=== PATIENT | male | born 1945 | race Caucasian/White ===

== ENCOUNTER 2016-10-26 20:37 | Inpatient (IN) | payer BC, MEDICARE ==
[~2016-10-26] VITALS: Ht 190.5 cm; Wt 104.7 kg
[2016-10-26] MEDS ORDERED: ONDANSETRON 4 MG VIAL IV PRN (22:55)
[2016-10-26] MEDS ORDERED: SODIUM CHLORIDE 0.9% 1,000 ML IV SCH (22:55)
[2016-10-26] MEDS ORDERED: ALU/MAG/SIM 30 ML UDC PO PRN (22:55)
[2016-10-26] MEDS ORDERED: MAG HYDROX 30 ML UDC PO PRN (22:55)
[2016-10-26] MEDS ORDERED: SALINE FLUSH 10 ML FLUSH PRN (22:55)
[2016-10-26] MEDS ORDERED: BISACODYL EC 5 MG TAB PO PRN (22:55)
[2016-10-27] VITALS (8 sets, daily range): BP systolic 100–117; RESP 18–22; TEMP 97.4–98.1; Ht 190.5 cm; Wt 104.7 kg
[2016-10-27] MEDS ORDERED: DILAUDID 1 MG/ML AMP IV STA (00:25)
[2016-10-27] MEDS ORDERED: ONDANSETRON 4 MG VIAL ONE (00:47)
[2016-10-27] MEDS ORDERED: MORPHINE 4 MG/ML SYR ONE (00:47)
[2016-10-27] MEDS ORDERED: MISSING DOSE XX ONE (02:50)
[2016-10-27] MEDS: PANTOPRAZOLE 40 MG VIAL IV SCH ×3 (04:17→22:03)
[2016-10-27] MEDS: MORPHINE 4 MG/ML SYR IV PRN ×2 (04:44→22:03)
[2016-10-27] MEDS: SODIUM CHLORIDE 0.9% FLUSH BAG 500 ML IV SCH (06:54)
[2016-10-27] MEDS: LEVOTHYROXINE 0.025 MG TAB PO SCH (07:00)
[2016-10-27] MEDS ORDERED: GLUCAGON 1 MG VIAL IM PRN (08:00)
[2016-10-27] MEDS ORDERED: DEXTROSE 50% SYRINGE 50 ML IV PRN (08:00)
[2016-10-27] MEDS: CARVEDILOL 25 MG TAB PO SCH ×2 (09:00→21:00)
[2016-10-27] MEDS: SALINE FLUSH 10 ML FLUSH SCH ×2 (09:10→20:14)
[2016-10-27] MEDS: AMIODARONE 200 MG TAB PO SCH ×2 (09:10→22:00)
[2016-10-27] MEDS: BUMETANIDE 1 MG/4 ML VIAL IV SCH ×2 (09:11→17:22)
[2016-10-27] MEDS ORDERED: GABAPENTIN 300 MG CAP PO SCH (17:00)
[2016-10-27] MEDS: Atorvastatin 40 MG TAB PO SCH (20:14)
[2016-10-27] MEDS: GABAPENTIN 300 MG CAP PO SCH (20:14)
[2016-10-27] MEDS: BISACODYL 10 MG SUPP RECTAL PRN (20:15)
[2016-10-28] VITALS (9 sets, daily range): BP systolic 80–118; RESP 16–20; TEMP 97.5–98.3
[2016-10-28] MEDS: SODIUM CHLORIDE 0.9% FLUSH BAG 500 ML IV SCH (05:18)
[2016-10-28] MEDS: LEVOTHYROXINE 0.025 MG TAB PO SCH (06:55)
[2016-10-28] MEDS: AMIODARONE 200 MG TAB PO SCH ×2 (10:00→21:50)
[2016-10-28] MEDS: CARVEDILOL 25 MG TAB PO SCH ×2 (10:00→21:00)
[2016-10-28] MEDS: GABAPENTIN 600 MG TAB PO SCH ×2 (10:00→14:31)
[2016-10-28] MEDS: BUMETANIDE 1 MG/4 ML VIAL IV SCH ×2 (10:01→17:28)
[2016-10-28] MEDS: PANTOPRAZOLE 40 MG VIAL IV SCH ×2 (10:01→22:46)
[2016-10-28] MEDS: SALINE FLUSH 10 ML FLUSH SCH ×2 (10:02→19:44)
[2016-10-28] MEDS ORDERED: PEG/E-LYTE 4,000 ML BTL PO ONE (16:00)
[2016-10-28] MEDS ORDERED: SODIUM CHLORIDE 0.9% 1,000 ML IV ONE (21:40)
[2016-10-28] MEDS: Atorvastatin 40 MG TAB PO SCH (21:50)
[2016-10-28] MEDS: GABAPENTIN 300 MG CAP PO SCH (21:50)
[2016-10-29] VITALS (8 sets, daily range): BP systolic 97–124; RESP 18–20; TEMP 97.3–99.9
[2016-10-29] MEDS ORDERED: MISSING DOSE XX ONE ×2 (00:05→12:55)
[2016-10-29] MEDS: BISACODYL 10 MG SUPP RECTAL PRN (00:19)
[2016-10-29] MEDS ORDERED: PEG/E-LYTE 4,000 ML BTL PO ONE (04:00)
[2016-10-29] MEDS: SODIUM CHLORIDE 0.9% FLUSH BAG 500 ML IV SCH (05:06)
[2016-10-29] MEDS ORDERED: BISACODYL EC 5 MG TAB PO ONE (08:00)
[2016-10-29] MEDS: AMIODARONE 200 MG TAB PO SCH ×2 (08:23→21:01)
[2016-10-29] MEDS: GABAPENTIN 600 MG TAB PO SCH ×2 (08:23→14:31)
[2016-10-29] MEDS: LEVOTHYROXINE 0.025 MG TAB PO SCH (08:23)
[2016-10-29] MEDS: SALINE FLUSH 10 ML FLUSH SCH ×2 (08:24→21:02)
[2016-10-29] MEDS: POLYETHYLENE GLYCOL 17 GM PACKET PO SCH ×12 (10:31→22:54)
[2016-10-29] MEDS: PANTOPRAZOLE 40 MG VIAL IV SCH (11:18)
[2016-10-29] MEDS ORDERED: POLYETHYLENE GLYCOL 17 GM PACKET PO SCH (17:30)
[2016-10-29] MEDS: SIMETHICONE 80 MG CHEW TAB PO SCH (21:01)
[2016-10-29] MEDS: GABAPENTIN 300 MG CAP PO SCH (21:01)
[2016-10-29] MEDS: Carvedilol 6.25 MG TAB PO SCH (21:01)
[2016-10-29] MEDS: Atorvastatin 40 MG TAB PO SCH (21:01)
[2016-10-30] VITALS (15 sets, daily range): BP systolic 99–134; RESP 14–20; TEMP 97.2–98.4
[2016-10-30] MEDS: POLYETHYLENE GLYCOL 17 GM PACKET PO SCH ×5 (00:24→05:14)
[2016-10-30] MEDS ORDERED: POLYETHYLENE GLYCOL 17 GM PACKET PO SCH (04:00)
[2016-10-30] MEDS: SODIUM CHLORIDE 0.9% FLUSH BAG 500 ML IV SCH (05:03)
[2016-10-30] MEDS ORDERED: BISACODYL EC 5 MG TAB PO ONE (09:00)
[2016-10-30] MEDS ORDERED: MAG CIT SOLN 300 ML PO ONE (09:00)
[2016-10-30] MEDS: GABAPENTIN 600 MG TAB PO SCH ×2 (10:37→13:47)
[2016-10-30] MEDS ORDERED: Furosemide 20 MG/2 ML VIAL IV ONE (10:45)
[2016-10-30] MEDS: BUMETANIDE 1 MG/4 ML VIAL IV SCH ×3 (10:52→20:22)
[2016-10-30] MEDS: SALINE FLUSH 10 ML FLUSH SCH ×2 (10:53→20:23)
[2016-10-30] MEDS: LEVOTHYROXINE 0.025 MG TAB PO SCH (10:53)
[2016-10-30] MEDS: Carvedilol 6.25 MG TAB PO SCH ×2 (10:54→20:22)
[2016-10-30] MEDS: SIMETHICONE 80 MG CHEW TAB PO SCH (10:54)
[2016-10-30] MEDS: AMIODARONE 200 MG TAB PO SCH ×2 (10:54→20:23)
[2016-10-30] MEDS ORDERED: IRON SUCROSE COMPLEX 500 MG in SODIUM CHLORIDE 0.9% 250 ML IV ONE (12:00)
[2016-10-30] MEDS: NEB-BUDESONIDE 0.5 MG INH SCH ×2 (12:00→17:24)
[2016-10-30] MEDS: DUONEB INH SCH ×4 (12:00→22:48)
[2016-10-30] MEDS: NEB-BROVANA 15 MCG/2 ML INH SCH ×2 (12:00→17:23)
[2016-10-30] MEDS ORDERED: MISSING DOSE XX ONE ×2 (13:30→22:05)
[2016-10-30] MEDS: MORPHINE 4 MG/ML SYR IV PRN (13:43)
[2016-10-30] MEDS: PANTOPRAZOLE 40 MG VIAL IV SCH ×2 (13:47→20:23)
[2016-10-30] MEDS: CEFTRIAXONE 1 GM in SODIUM CHLORIDE 0.9% 50 ML IV SCH (13:47)
[2016-10-30] MEDS: Atorvastatin 40 MG TAB PO SCH (20:22)
[2016-10-30] MEDS: GABAPENTIN 300 MG CAP PO SCH (20:23)
[2016-10-31] VITALS (15 sets, daily range): BP systolic 103–169; RESP 18–23; TEMP 97.4–99.7
[2016-10-31] MEDS ORDERED: MAG CIT SOLN 300 ML PO ONE (02:00)
[2016-10-31] MEDS: LEVOTHYROXINE 0.025 MG TAB PO SCH (05:27)
[2016-10-31] MEDS: SODIUM CHLORIDE 0.9% FLUSH BAG 500 ML IV SCH (05:30)
[2016-10-31] MEDS ORDERED: LACT RINGERS 1,000 ML IV SCH (07:20)
[2016-10-31] MEDS ORDERED: LIDOCAINE 1% BUFFERED 1 ML SYR INTRADERM PRN (07:20)
[2016-10-31] MEDS ORDERED: NEB-ALBUTEROL 2.5 MG/3 ML INH ONE ×2 (08:16→08:20)
[2016-10-31] MEDS: NEB-BUDESONIDE 0.5 MG INH SCH ×2 (08:16→18:53)
[2016-10-31] MEDS: NEB-BROVANA 15 MCG/2 ML INH SCH ×2 (08:16→18:53)
[2016-10-31] MEDS: DUONEB INH SCH ×5 (08:16→23:00)
[2016-10-31] MEDS: CEFTRIAXONE 1 GM in SODIUM CHLORIDE 0.9% 50 ML IV SCH (09:33)
[2016-10-31] MEDS: GABAPENTIN 600 MG TAB PO SCH ×2 (10:19→14:00)
[2016-10-31] MEDS: SALINE FLUSH 10 ML FLUSH SCH ×2 (10:19→21:23)
[2016-10-31] MEDS: PANTOPRAZOLE 40 MG VIAL IV SCH (10:19)
[2016-10-31] MEDS: BUMETANIDE 1 MG/4 ML VIAL IV SCH ×3 (10:19→21:24)
[2016-10-31] MEDS: AMIODARONE 200 MG TAB PO SCH ×2 (10:19→21:24)
[2016-10-31] MEDS: Carvedilol 6.25 MG TAB PO SCH ×2 (10:20→21:24)
[2016-10-31] MEDS ORDERED: PROPOFOL 50ML PER ML IV ONE (10:20)
[2016-10-31] MEDS: PANTOPRAZOLE 40 MG TAB PO SCH ×2 (10:45→16:14)
[2016-10-31] MEDS ORDERED: MISSING DOSE XX ONE (20:00)
[2016-10-31] MEDS: DABIGATRAN 150 MG CAP PO SCH (21:24)
[2016-10-31] MEDS: Atorvastatin 40 MG TAB PO SCH (21:24)
[2016-10-31] MEDS: GABAPENTIN 300 MG CAP PO SCH (21:24)
[2016-11-01 03:46] VITALS: BP_SYST 101; RESP 24; TEMP 98.3
[2016-11-01] MEDS: SODIUM CHLORIDE 0.9% FLUSH BAG 500 ML IV SCH (05:20)
[2016-11-01] MEDS ORDERED: MISSING DOSE XX ONE ×2 (05:20→10:30)
[2016-11-01] MEDS: LEVOTHYROXINE 0.025 MG TAB PO SCH (05:20)
[2016-11-01] MEDS: PANTOPRAZOLE 40 MG TAB PO SCH ×2 (05:28→17:20)
[2016-11-01] MEDS: NEB-BROVANA 15 MCG/2 ML INH SCH ×2 (06:48→18:19)
[2016-11-01] MEDS: NEB-BUDESONIDE 0.5 MG INH SCH ×2 (06:48→18:19)
[2016-11-01] MEDS: DUONEB INH SCH ×5 (06:48→22:56)
[2016-11-01 07:27] VITALS: BP_SYST 127; RESP 20; TEMP 97.9
[2016-11-01] MEDS: GABAPENTIN 600 MG TAB PO SCH ×2 (10:20→14:23)
[2016-11-01] MEDS: DABIGATRAN 150 MG CAP PO SCH ×2 (10:20→21:43)
[2016-11-01] MEDS: CEFTRIAXONE 1 GM in SODIUM CHLORIDE 0.9% 50 ML IV SCH (10:21)
[2016-11-01] MEDS: BUMETANIDE 1 MG/4 ML VIAL IV SCH ×3 (10:21→21:43)
[2016-11-01] MEDS: Carvedilol 6.25 MG TAB PO SCH ×2 (10:21→21:43)
[2016-11-01] MEDS: SALINE FLUSH 10 ML FLUSH SCH ×2 (10:21→21:42)
[2016-11-01] MEDS: AMIODARONE 200 MG TAB PO SCH ×2 (10:22→21:43)
[2016-11-01] MEDS: LEVEMIR INSULIN SUBQ SCH ×2 (10:45→21:45)
[2016-11-01 12:00] VITALS: BP_SYST 107; RESP 18; TEMP 97.3
[2016-11-01 15:54] VITALS: BP_SYST 118; RESP 20; TEMP 97.4
[2016-11-01] MEDS: GUAIFENESIN ER 600 MG TABCR PO SCH (18:57)
[2016-11-01 19:36] VITALS: BP_SYST 116; RESP 20; TEMP 97.9
[2016-11-01] MEDS: NEB-NACL 3% 4 ML NEBU INH SCH ×2 (20:23→22:56)
[2016-11-01] MEDS: Atorvastatin 40 MG TAB PO SCH (21:43)
[2016-11-01] MEDS: ALPRAZOLAM 0.25 MG TAB PO PRN (21:43)
[2016-11-01] MEDS: GABAPENTIN 300 MG CAP PO SCH (21:44)
[2016-11-01 23:10] VITALS: BP_SYST 109; RESP 20; TEMP 97.7
[2016-11-02] VITALS (17 sets, daily range): BP systolic 90–118; RESP 11–30; TEMP 97.2–97.8
[2016-11-02] MEDS: SODIUM CHLORIDE 0.9% FLUSH BAG 500 ML IV SCH ×2 (05:31→23:20)
[2016-11-02] MEDS: PANTOPRAZOLE 40 MG TAB PO SCH ×2 (05:32→17:48)
[2016-11-02] MEDS: LEVOTHYROXINE 0.025 MG TAB PO SCH (05:32)
[2016-11-02] MEDS: ALPRAZOLAM 0.25 MG TAB PO PRN (05:32)
[2016-11-02] MEDS: DUONEB INH SCH ×5 (07:51→22:41)
[2016-11-02] MEDS: NEB-BROVANA 15 MCG/2 ML INH SCH ×2 (07:51→18:58)
[2016-11-02] MEDS: NEB-NACL 3% 4 ML NEBU INH SCH ×4 (07:51→22:41)
[2016-11-02] MEDS: NEB-BUDESONIDE 0.5 MG INH SCH ×2 (07:51→18:58)
[2016-11-02] MEDS: CEFTRIAXONE 1 GM in SODIUM CHLORIDE 0.9% 50 ML IV SCH (09:06)
[2016-11-02] MEDS: GABAPENTIN 600 MG TAB PO SCH ×2 (09:06→12:32)
[2016-11-02] MEDS: BUMETANIDE 1 MG/4 ML VIAL IV SCH ×3 (09:07→21:42)
[2016-11-02] MEDS: MORPHINE 4 MG/ML SYR IV PRN (09:07)
[2016-11-02] MEDS: GUAIFENESIN ER 600 MG TABCR PO SCH ×2 (09:08→21:42)
[2016-11-02] MEDS: Carvedilol 6.25 MG TAB PO SCH (09:08)
[2016-11-02] MEDS: DABIGATRAN 150 MG CAP PO SCH ×2 (09:08→21:42)
[2016-11-02] MEDS: LEVEMIR INSULIN SUBQ SCH ×2 (09:09→22:05)
[2016-11-02] MEDS: SALINE FLUSH 10 ML FLUSH SCH ×2 (09:10→19:26)
[2016-11-02] MEDS: AMIODARONE 200 MG TAB PO SCH ×2 (09:18→21:42)
[2016-11-02] MEDS: PIPERACIL/TAZO 3.375GM/50ML 50 ML IV SCH ×3 (11:39→23:19)
[2016-11-02] MEDS: SPIRONOLACTONE 25 MG TAB PO SCH (11:39)
[2016-11-02] MEDS: METOLAZONE 5 MG TAB PO SCH (11:39)
[2016-11-02] MEDS ORDERED: BUMETANIDE 1 MG/4 ML VIAL IV SCH (16:00)
[2016-11-02] MEDS ORDERED: PANTOPRAZOLE 40 MG TAB PO SCH (16:00)
[2016-11-02] MEDS: FLUCONAZOLE 100 MG TAB PO SCH (17:48)
[2016-11-02] MEDS: ENTRESTO 24/26 MG TAB PO SCH ×2 (17:48→21:42)
[2016-11-02] MEDS: GABAPENTIN 300 MG CAP PO SCH (21:42)
[2016-11-02] MEDS: Atorvastatin 40 MG TAB PO SCH (21:42)
[2016-11-02] MEDS: Carvedilol 3.125 MG TAB PO SCH (21:44)
[2016-11-03] VITALS (30 sets, daily range): BP systolic 80–112; RESP 14–31; TEMP 96.7–98.1
[2016-11-03] MEDS: DUONEB INH SCH ×6 (02:36→23:19)
[2016-11-03] MEDS: LEVOTHYROXINE 0.025 MG TAB PO SCH (06:19)
[2016-11-03] MEDS: PANTOPRAZOLE 40 MG TAB PO SCH ×2 (06:19→16:32)
[2016-11-03] MEDS: NEB-BUDESONIDE 0.5 MG INH SCH ×2 (07:20→18:15)
[2016-11-03] MEDS: NEB-BROVANA 15 MCG/2 ML INH SCH ×2 (07:21→18:15)
[2016-11-03] MEDS: NEB-NACL 3% 4 ML NEBU INH SCH ×4 (07:21→23:19)
[2016-11-03] MEDS: PIPERACIL/TAZO 3.375GM/50ML 50 ML IV SCH ×3 (08:32→23:47)
[2016-11-03] MEDS: SALINE FLUSH 10 ML FLUSH SCH ×2 (08:32→19:34)
[2016-11-03] MEDS: METOLAZONE 5 MG TAB PO SCH (08:33)
[2016-11-03] MEDS: GUAIFENESIN ER 600 MG TABCR PO SCH ×2 (08:33→20:34)
[2016-11-03] MEDS: DABIGATRAN 150 MG CAP PO SCH ×2 (08:33→20:34)
[2016-11-03] MEDS: GABAPENTIN 600 MG TAB PO SCH ×2 (08:33→13:09)
[2016-11-03] MEDS: AMIODARONE 200 MG TAB PO SCH ×2 (08:34→23:46)
[2016-11-03] MEDS: ENTRESTO 24/26 MG TAB PO SCH ×2 (08:34→20:33)
[2016-11-03] MEDS: FLUCONAZOLE 100 MG TAB PO SCH (08:34)
[2016-11-03] MEDS: SPIRONOLACTONE 25 MG TAB PO SCH (08:34)
[2016-11-03] MEDS: BUMETANIDE 1 MG/4 ML VIAL IV SCH ×2 (09:00→20:33)
[2016-11-03] MEDS: Carvedilol 3.125 MG TAB PO SCH (09:00)
[2016-11-03] MEDS: LEVEMIR INSULIN SUBQ SCH ×2 (09:31→20:37)
[2016-11-03] MEDS ORDERED: MISSING DOSE XX ONE (12:40)
[2016-11-03] MEDS: MORPHINE 4 MG/ML SYR IV PRN (13:04)
[2016-11-03] MEDS ORDERED: DOPamine PREMIX 250 ML IV PRN (15:55)
[2016-11-03] MEDS: MORPHINE 2 MG/ML SYR IV PRN (19:35)
[2016-11-03] MEDS: GABAPENTIN 300 MG CAP PO SCH (20:35)
[2016-11-03] MEDS: Atorvastatin 40 MG TAB PO SCH (20:35)
[2016-11-03] MEDS ORDERED: Carvedilol 6.25 MG TAB PO SCH (21:00)
[2016-11-03] MEDS ORDERED: BUMETANIDE 1 MG/4 ML VIAL IV SCH ×2 (21:00)
[2016-11-03] MEDS ORDERED: Carvedilol 3.125 MG TAB PO SCH (21:00)
[2016-11-04] VITALS (25 sets, daily range): BP systolic 81–115; RESP 11–23; TEMP 97.5–99.5
[2016-11-04] MEDS: MORPHINE 2 MG/ML SYR IV PRN ×2 (03:05→21:38)
[2016-11-04] MEDS: DUONEB INH SCH ×6 (03:16→22:23)
[2016-11-04] MEDS: NEB-NACL 3% 4 ML NEBU INH SCH ×4 (06:19→22:22)
[2016-11-04] MEDS: NEB-BROVANA 15 MCG/2 ML INH SCH ×2 (06:19→20:08)
[2016-11-04] MEDS: NEB-BUDESONIDE 0.5 MG INH SCH ×2 (06:19→20:08)
[2016-11-04] MEDS: SODIUM CHLORIDE 0.9% FLUSH BAG 500 ML IV SCH (06:44)
[2016-11-04] MEDS: LEVOTHYROXINE 0.025 MG TAB PO SCH (06:44)
[2016-11-04] MEDS: PANTOPRAZOLE 40 MG TAB PO SCH ×2 (06:44→16:23)
[2016-11-04] MEDS: DABIGATRAN 150 MG CAP PO SCH ×2 (10:12→21:40)
[2016-11-04] MEDS: GABAPENTIN 600 MG TAB PO SCH ×2 (10:13→13:56)
[2016-11-04] MEDS: SACCHA BOULARDII 250MG CAP PO SCH ×2 (10:13→21:41)
[2016-11-04] MEDS: METOPROLOL XL 25 MG TAB PO SCH (10:13)
[2016-11-04] MEDS: GUAIFENESIN ER 600 MG TABCR PO SCH ×2 (10:15→21:40)
[2016-11-04] MEDS: FLUCONAZOLE 100 MG TAB PO SCH (10:15)
[2016-11-04] MEDS: SPIRONOLACTONE 25 MG TAB PO SCH (10:15)
[2016-11-04] MEDS: PIPERACIL/TAZO 3.375GM/50ML 50 ML IV SCH ×2 (10:16→16:23)
[2016-11-04] MEDS: BUMETANIDE 1 MG/4 ML VIAL IV SCH (10:16)
[2016-11-04] MEDS: SALINE FLUSH 10 ML FLUSH SCH ×2 (10:17→21:42)
[2016-11-04] MEDS: LEVEMIR INSULIN SUBQ SCH ×2 (10:33→21:40)
[2016-11-04] MEDS: ENTRESTO 24/26 MG TAB PO SCH ×2 (10:37→21:00)
[2016-11-04] MEDS: PHENAZOPYRIDINE 100 MG TAB PO SCH ×3 (11:07→21:40)
[2016-11-04] MEDS ORDERED: DIGOXIN 0.125 MG TAB PO ONE (16:15)
[2016-11-04] MEDS: Atorvastatin 40 MG TAB PO SCH (21:40)
[2016-11-04] MEDS: GABAPENTIN 300 MG CAP PO SCH (21:41)
[2016-11-05] VITALS (7 sets, daily range): BP systolic 94–128; RESP 18–20; TEMP 97.6–98.9
[2016-11-05] MEDS: AMIODARONE 200 MG TAB PO SCH ×2 (00:15→23:06)
[2016-11-05] MEDS: PIPERACIL/TAZO 3.375GM/50ML 50 ML IV SCH ×4 (00:15→23:08)
[2016-11-05] MEDS: SODIUM CHLORIDE 0.9% FLUSH BAG 500 ML IV SCH (00:20)
[2016-11-05] MEDS: LEVOTHYROXINE 0.025 MG TAB PO SCH (06:24)
[2016-11-05] MEDS: PANTOPRAZOLE 40 MG TAB PO SCH ×2 (06:24→16:23)
[2016-11-05] MEDS: NEB-NACL 3% 4 ML NEBU INH SCH ×4 (06:42→23:07)
[2016-11-05] MEDS: NEB-BUDESONIDE 0.5 MG INH SCH ×2 (06:42→19:30)
[2016-11-05] MEDS: NEB-BROVANA 15 MCG/2 ML INH SCH ×2 (06:42→19:30)
[2016-11-05] MEDS: DUONEB INH SCH ×5 (06:42→23:07)
[2016-11-05] MEDS: SALINE FLUSH 10 ML FLUSH SCH ×3 (07:58→23:08)
[2016-11-05] MEDS: GABAPENTIN 600 MG TAB PO SCH ×2 (07:59→13:32)
[2016-11-05] MEDS: DABIGATRAN 150 MG CAP PO SCH (08:00)
[2016-11-05] MEDS: ENTRESTO 24/26 MG TAB PO SCH ×2 (08:00→20:34)
[2016-11-05] MEDS: FLUCONAZOLE 100 MG TAB PO SCH (08:00)
[2016-11-05] MEDS: METOPROLOL XL 25 MG TAB PO SCH (08:00)
[2016-11-05] MEDS: SACCHA BOULARDII 250MG CAP PO SCH ×2 (08:00→20:34)
[2016-11-05] MEDS: SPIRONOLACTONE 25 MG TAB PO SCH (08:00)
[2016-11-05] MEDS: PHENAZOPYRIDINE 100 MG TAB PO SCH ×3 (08:00→20:34)
[2016-11-05] MEDS: LEVEMIR INSULIN SUBQ SCH ×2 (08:01→20:33)
[2016-11-05] MEDS ORDERED: BUMETANIDE 1 MG/4 ML VIAL IV SCH (09:00)
[2016-11-05] MEDS: GUAIFENESIN ER 600 MG TABCR PO SCH ×2 (10:00→20:34)
[2016-11-05] MEDS: GABAPENTIN 300 MG CAP PO SCH (20:34)
[2016-11-05] MEDS: APIXABAN 5 MG TAB PO SCH (20:34)
[2016-11-05] MEDS: Atorvastatin 40 MG TAB PO SCH (20:35)
[2016-11-05] MEDS: ZOLPIDEM 5 MG TAB PO SCH (23:06)
[2016-11-05] MEDS: MORPHINE 2 MG/ML SYR IV PRN (23:08)
[2016-11-06] VITALS (7 sets, daily range): BP systolic 101–130; RESP 16–20; TEMP 97.6–99.2
[2016-11-06] MEDS: SODIUM CHLORIDE 0.9% FLUSH BAG 500 ML IV SCH (06:30)
[2016-11-06] MEDS: PANTOPRAZOLE 40 MG TAB PO SCH ×2 (06:32→16:43)
[2016-11-06] MEDS: LEVOTHYROXINE 0.025 MG TAB PO SCH (06:32)
[2016-11-06] MEDS: NEB-BROVANA 15 MCG/2 ML INH SCH ×2 (07:38→19:13)
[2016-11-06] MEDS: NEB-NACL 3% 4 ML NEBU INH SCH ×4 (07:38→22:21)
[2016-11-06] MEDS: NEB-BUDESONIDE 0.5 MG INH SCH ×2 (07:38→19:13)
[2016-11-06] MEDS: DUONEB INH SCH ×5 (07:41→22:21)
[2016-11-06] MEDS: GUAIFENESIN ER 600 MG TABCR PO SCH ×2 (08:09→20:11)
[2016-11-06] MEDS: FLUCONAZOLE 100 MG TAB PO SCH (08:09)
[2016-11-06] MEDS: PIPERACIL/TAZO 3.375GM/50ML 50 ML IV SCH ×3 (08:09→23:26)
[2016-11-06] MEDS: ENTRESTO 24/26 MG TAB PO SCH (08:09)
[2016-11-06] MEDS: GABAPENTIN 600 MG TAB PO SCH ×2 (08:10→12:27)
[2016-11-06] MEDS: APIXABAN 5 MG TAB PO SCH ×2 (08:10→20:11)
[2016-11-06] MEDS: METOPROLOL XL 25 MG TAB PO SCH (08:10)
[2016-11-06] MEDS: SPIRONOLACTONE 25 MG TAB PO SCH (08:10)
[2016-11-06] MEDS: SACCHA BOULARDII 250MG CAP PO SCH ×2 (08:10→20:11)
[2016-11-06] MEDS: LEVEMIR INSULIN SUBQ SCH ×2 (08:13→20:26)
[2016-11-06] MEDS: MORPHINE 2 MG/ML SYR IV PRN ×3 (08:57→20:41)
[2016-11-06] MEDS: DIGOXIN 0.125 MG TAB PO SCH (12:28)
[2016-11-06] MEDS ORDERED: DIGOXIN 0.25 MG TAB PO ONE (16:50)
[2016-11-06] MEDS: SALINE FLUSH 10 ML FLUSH SCH (20:10)
[2016-11-06] MEDS: GABAPENTIN 300 MG CAP PO SCH (20:11)
[2016-11-06] MEDS: Atorvastatin 40 MG TAB PO SCH (20:11)
[2016-11-06] MEDS: ZOLPIDEM 5 MG TAB PO SCH (22:26)
[2016-11-06] MEDS: AMIODARONE 200 MG TAB PO SCH (23:06)
[2016-11-07] VITALS (7 sets, daily range): BP systolic 114–139; RESP 16–18; TEMP 97.4–99.1
[2016-11-07] MEDS: MORPHINE 2 MG/ML SYR IV PRN ×3 (04:52→12:46)
[2016-11-07] MEDS: SODIUM CHLORIDE 0.9% FLUSH BAG 500 ML IV SCH (06:15)
[2016-11-07] MEDS: LEVOTHYROXINE 0.025 MG TAB PO SCH (06:15)
[2016-11-07] MEDS: PANTOPRAZOLE 40 MG TAB PO SCH ×2 (06:15→17:35)
[2016-11-07] MEDS: DUONEB INH SCH ×5 (06:57→23:52)
[2016-11-07] MEDS: NEB-BROVANA 15 MCG/2 ML INH SCH ×2 (06:57→19:24)
[2016-11-07] MEDS: NEB-BUDESONIDE 0.5 MG INH SCH ×2 (06:57→19:24)
[2016-11-07] MEDS: NEB-NACL 3% 4 ML NEBU INH SCH ×4 (06:58→23:53)
[2016-11-07] MEDS: PIPERACIL/TAZO 3.375GM/50ML 50 ML IV SCH ×2 (08:57→17:37)
[2016-11-07] MEDS: SALINE FLUSH 10 ML FLUSH SCH ×2 (08:57→21:29)
[2016-11-07] MEDS: LEVEMIR INSULIN SUBQ SCH ×2 (08:58→21:30)
[2016-11-07] MEDS: SACCHA BOULARDII 250MG CAP PO SCH ×2 (08:59→21:29)
[2016-11-07] MEDS: GUAIFENESIN ER 600 MG TABCR PO SCH ×2 (08:59→21:29)
[2016-11-07] MEDS: FLUCONAZOLE 100 MG TAB PO SCH (09:00)
[2016-11-07] MEDS: GABAPENTIN 600 MG TAB PO SCH ×2 (09:00→12:45)
[2016-11-07] MEDS: APIXABAN 5 MG TAB PO SCH ×2 (09:00→21:29)
[2016-11-07] MEDS: METOPROLOL XL 25 MG TAB PO SCH (09:00)
[2016-11-07] MEDS: GABAPENTIN 300 MG CAP PO SCH (21:28)
[2016-11-07] MEDS: ZOLPIDEM 5 MG TAB PO SCH (21:29)
[2016-11-07] MEDS: Atorvastatin 40 MG TAB PO SCH (21:29)
[2016-11-08] VITALS (7 sets, daily range): BP systolic 93–134; RESP 16–20; TEMP 97.3–98.9
[2016-11-08] MEDS ORDERED: MISSING DOSE XX ONE ×2 (00:20→14:10)
[2016-11-08] MEDS: SODIUM CHLORIDE 0.9% FLUSH BAG 500 ML IV SCH (01:40)
[2016-11-08] MEDS: AMIODARONE 200 MG TAB PO SCH (01:40)
[2016-11-08] MEDS: PIPERACIL/TAZO 3.375GM/50ML 50 ML IV SCH ×2 (01:40→08:33)
[2016-11-08] MEDS: LEVOTHYROXINE 0.025 MG TAB PO SCH (05:57)
[2016-11-08] MEDS: PANTOPRAZOLE 40 MG TAB PO SCH ×2 (05:57→16:18)
[2016-11-08] MEDS: NEB-BUDESONIDE 0.5 MG INH SCH ×2 (06:20→19:12)
[2016-11-08] MEDS: NEB-BROVANA 15 MCG/2 ML INH SCH ×2 (06:20→19:12)
[2016-11-08] MEDS: NEB-NACL 3% 4 ML NEBU INH SCH ×4 (06:20→23:25)
[2016-11-08] MEDS: DUONEB INH SCH ×5 (06:20→23:25)
[2016-11-08] MEDS: SALINE FLUSH 10 ML FLUSH SCH ×2 (08:33→20:00)
[2016-11-08] MEDS: FLUCONAZOLE 100 MG TAB PO SCH (08:34)
[2016-11-08] MEDS: SACCHA BOULARDII 250MG CAP PO SCH ×2 (08:34→20:50)
[2016-11-08] MEDS: GABAPENTIN 600 MG TAB PO SCH ×2 (08:34→13:00)
[2016-11-08] MEDS: APIXABAN 5 MG TAB PO SCH ×2 (08:34→20:47)
[2016-11-08] MEDS: GUAIFENESIN ER 600 MG TABCR PO SCH ×2 (08:34→20:50)
[2016-11-08] MEDS: METOPROLOL XL 25 MG TAB PO SCH (08:34)
[2016-11-08] MEDS: LEVEMIR INSULIN SUBQ SCH ×2 (08:35→20:57)
[2016-11-08] MEDS: DIGOXIN 0.125 MG TAB PO SCH (11:47)
[2016-11-08] MEDS ORDERED: PHARMACY TO DOSE XX SCH (13:20)
[2016-11-08] MEDS ORDERED: PIPERACIL/TAZO 3.375GM/50ML 50 ML IV SCH (16:00)
[2016-11-08] MEDS: TRAMADOL 50 MG TAB PO PRN ×2 (17:08→21:02)
[2016-11-08] MEDS: GABAPENTIN 300 MG CAP PO SCH (20:49)
[2016-11-08] MEDS: ZOLPIDEM 5 MG TAB PO SCH (20:50)
[2016-11-08] MEDS: Atorvastatin 40 MG TAB PO SCH (20:50)
[2016-11-09] VITALS (7 sets, daily range): BP systolic 116–140; RESP 18–22; TEMP 97.4–98.4
[2016-11-09] MEDS: AMIODARONE 200 MG TAB PO SCH ×2 (00:05→23:39)
[2016-11-09] MEDS: TRAMADOL 50 MG TAB PO PRN ×3 (03:16→21:37)
[2016-11-09] MEDS: SODIUM CHLORIDE 0.9% FLUSH BAG 500 ML IV SCH (05:12)
[2016-11-09] MEDS: PANTOPRAZOLE 40 MG TAB PO SCH ×2 (05:55→16:44)
[2016-11-09] MEDS: LEVOTHYROXINE 0.025 MG TAB PO SCH (05:55)
[2016-11-09] MEDS: DUONEB INH SCH ×5 (07:24→23:19)
[2016-11-09] MEDS: NEB-BUDESONIDE 0.5 MG INH SCH ×2 (07:24→19:59)
[2016-11-09] MEDS: NEB-BROVANA 15 MCG/2 ML INH SCH ×2 (07:24→19:59)
[2016-11-09] MEDS: NEB-NACL 3% 4 ML NEBU INH SCH ×5 (07:24→23:19)
[2016-11-09] MEDS: SALINE FLUSH 10 ML FLUSH SCH ×2 (08:41→23:37)
[2016-11-09] MEDS: LEVEMIR INSULIN SUBQ SCH ×2 (08:42→21:45)
[2016-11-09] MEDS: SACCHA BOULARDII 250MG CAP PO SCH ×2 (08:44→21:38)
[2016-11-09] MEDS: GABAPENTIN 600 MG TAB PO SCH ×2 (08:44→12:39)
[2016-11-09] MEDS: METOPROLOL XL 25 MG TAB PO SCH (08:44)
[2016-11-09] MEDS: APIXABAN 5 MG TAB PO SCH ×2 (08:44→21:36)
[2016-11-09] MEDS: GUAIFENESIN ER 600 MG TABCR PO SCH ×2 (08:44→21:37)
[2016-11-09] MEDS: FLUCONAZOLE 100 MG TAB PO SCH (08:45)
[2016-11-09] MEDS: COLCHICINE 0.6 MG TAB PO SCH ×3 (10:49→21:38)
[2016-11-09] MEDS: Atorvastatin 40 MG TAB PO SCH (21:38)
[2016-11-09] MEDS: GABAPENTIN 300 MG CAP PO SCH (23:36)
[2016-11-09] MEDS: ZOLPIDEM 5 MG TAB PO SCH (23:37)
[2016-11-10] VITALS (7 sets, daily range): BP systolic 122–129; RESP 18–20; TEMP 97.1–98.4
[2016-11-10] MEDS: SODIUM CHLORIDE 0.9% FLUSH BAG 500 ML IV SCH (05:07)
[2016-11-10] MEDS: LEVOTHYROXINE 0.025 MG TAB PO SCH (05:15)
[2016-11-10] MEDS: PANTOPRAZOLE 40 MG TAB PO SCH ×2 (05:15→18:28)
[2016-11-10] MEDS: TRAMADOL 50 MG TAB PO PRN ×3 (05:17→18:29)
[2016-11-10] MEDS: NEB-NACL 3% 4 ML NEBU INH SCH ×4 (07:15→23:30)
[2016-11-10] MEDS: NEB-BUDESONIDE 0.5 MG INH SCH ×2 (07:15→19:03)
[2016-11-10] MEDS: DUONEB INH SCH ×5 (07:16→23:30)
[2016-11-10] MEDS: NEB-BROVANA 15 MCG/2 ML INH SCH ×2 (07:16→19:03)
[2016-11-10] MEDS ORDERED: MISSING DOSE XX ONE ×2 (08:25→21:20)
[2016-11-10] MEDS: LEVEMIR INSULIN SUBQ SCH ×2 (09:11→21:25)
[2016-11-10] MEDS: SALINE FLUSH 10 ML FLUSH SCH ×2 (09:11→21:30)
[2016-11-10] MEDS: GUAIFENESIN ER 600 MG TABCR PO SCH ×2 (09:12→21:26)
[2016-11-10] MEDS: SACCHA BOULARDII 250MG CAP PO SCH ×2 (09:12→21:25)
[2016-11-10] MEDS: METOPROLOL XL 25 MG TAB PO SCH (09:13)
[2016-11-10] MEDS: GABAPENTIN 600 MG TAB PO SCH ×2 (09:13→12:54)
[2016-11-10] MEDS: FLUCONAZOLE 100 MG TAB PO SCH (09:13)
[2016-11-10] MEDS: APIXABAN 5 MG TAB PO SCH ×2 (09:13→21:26)
[2016-11-10] MEDS: DIGOXIN 0.125 MG TAB PO SCH (12:54)
[2016-11-10] MEDS: ALLOPURINOL 300 MG TAB PO SCH (13:30)
[2016-11-10] MEDS ORDERED: COLCHICINE 0.6 MG TAB PO ONE (20:40)
[2016-11-10] MEDS: Atorvastatin 40 MG TAB PO SCH (21:25)
[2016-11-10] MEDS: GABAPENTIN 300 MG CAP PO SCH (21:34)
[2016-11-10] MEDS: ZOLPIDEM 5 MG TAB PO SCH (22:49)
[2016-11-10] MEDS: AMIODARONE 200 MG TAB PO SCH (22:50)
[2016-11-11] VITALS (7 sets, daily range): BP systolic 107–142; RESP 16–18; TEMP 97.5–98.1
[2016-11-11] MEDS: SODIUM CHLORIDE 0.9% FLUSH BAG 500 ML IV SCH (06:00)
[2016-11-11] MEDS: NEB-NACL 3% 4 ML NEBU INH SCH ×4 (07:20→23:21)
[2016-11-11] MEDS: NEB-BUDESONIDE 0.5 MG INH SCH ×2 (07:21→17:05)
[2016-11-11] MEDS: NEB-BROVANA 15 MCG/2 ML INH SCH ×2 (07:21→17:05)
[2016-11-11] MEDS: DUONEB INH SCH ×5 (07:21→23:20)
[2016-11-11] MEDS: PANTOPRAZOLE 40 MG TAB PO SCH ×2 (07:52→15:39)
[2016-11-11] MEDS: LEVOTHYROXINE 0.025 MG TAB PO SCH (07:52)
[2016-11-11] MEDS: LEVEMIR INSULIN SUBQ SCH ×2 (08:55→22:00)
[2016-11-11] MEDS: SALINE FLUSH 10 ML FLUSH SCH ×2 (08:55→22:00)
[2016-11-11] MEDS: ALLOPURINOL 300 MG TAB PO SCH (08:56)
[2016-11-11] MEDS: SACCHA BOULARDII 250MG CAP PO SCH ×2 (08:56→22:01)
[2016-11-11] MEDS: GUAIFENESIN ER 600 MG TABCR PO SCH ×2 (08:56→22:01)
[2016-11-11] MEDS: GABAPENTIN 600 MG TAB PO SCH ×2 (08:56→12:27)
[2016-11-11] MEDS: FLUCONAZOLE 100 MG TAB PO SCH (08:56)
[2016-11-11] MEDS: METOPROLOL XL 25 MG TAB PO SCH (08:56)
[2016-11-11] MEDS: APIXABAN 5 MG TAB PO SCH ×2 (08:56→22:02)
[2016-11-11] MEDS: TRAMADOL 50 MG TAB PO PRN ×3 (09:12→21:27)
[2016-11-11] MEDS: BUMETANIDE 1 MG TAB PO SCH (18:10)
[2016-11-11] MEDS: GABAPENTIN 300 MG CAP PO SCH (21:58)
[2016-11-11] MEDS: Atorvastatin 40 MG TAB PO SCH (22:01)
[2016-11-11] MEDS: ZOLPIDEM 5 MG TAB PO SCH (23:22)
[2016-11-12] MEDS: AMIODARONE 200 MG TAB PO SCH
[2016-11-12 00:06] VITALS: RESP 17
[2016-11-12 04:06] VITALS: BP_SYST 137; RESP 16; TEMP 97.7
[2016-11-12] MEDS: TRAMADOL 50 MG TAB PO PRN ×2 (04:50→15:03)
[2016-11-12] MEDS: SODIUM CHLORIDE 0.9% FLUSH BAG 500 ML IV SCH (04:58)
[2016-11-12] MEDS: PANTOPRAZOLE 40 MG TAB PO SCH ×2 (06:04→16:22)
[2016-11-12] MEDS: LEVOTHYROXINE 0.025 MG TAB PO SCH (06:04)
[2016-11-12] MEDS: ALPRAZOLAM 0.25 MG TAB PO PRN (06:04)
[2016-11-12] MEDS: NEB-BUDESONIDE 0.5 MG INH SCH (07:21)
[2016-11-12] MEDS: NEB-NACL 3% 4 ML NEBU INH SCH ×2 (07:21→10:58)
[2016-11-12] MEDS: NEB-BROVANA 15 MCG/2 ML INH SCH (07:21)
[2016-11-12] MEDS: DUONEB INH SCH ×3 (07:21→15:37)
[2016-11-12 07:57] VITALS: BP_SYST 135; RESP 18; TEMP 97.3
[2016-11-12] MEDS: BUMETANIDE 1 MG TAB PO SCH (08:32)
[2016-11-12] MEDS: FLUCONAZOLE 100 MG TAB PO SCH (08:32)
[2016-11-12] MEDS: SACCHA BOULARDII 250MG CAP PO SCH (08:32)
[2016-11-12] MEDS: ALLOPURINOL 300 MG TAB PO SCH (08:32)
[2016-11-12] MEDS: APIXABAN 5 MG TAB PO SCH (08:32)
[2016-11-12] MEDS: GUAIFENESIN ER 600 MG TABCR PO SCH (08:33)
[2016-11-12] MEDS: GABAPENTIN 600 MG TAB PO SCH ×2 (08:35→12:02)
[2016-11-12] MEDS: METOPROLOL XL 25 MG TAB PO SCH (08:36)
[2016-11-12] MEDS: SALINE FLUSH 10 ML FLUSH SCH (08:39)
[2016-11-12] MEDS: LEVEMIR INSULIN SUBQ SCH (08:39)
[2016-11-12] MEDS: DIGOXIN 0.125 MG TAB PO SCH (12:00)
[2016-11-12 12:06] VITALS: BP_SYST 129; RESP 18; TEMP 98
[2016-11-12 14:53] VITALS: BP_SYST 129; RESP 18; TEMP 98
[2016-11-12 15:56] VITALS: BP_SYST 115; RESP 18; TEMP 97.6
== END 2016-11-12 17:21 | DRG 291 ==
LOC: ENRESERVDT → ENRESERV → ENRESERVTM → ER 20:37 → ENPENDDIS 22:53 → EMR 22:53 → 3NT 10-27 01:28 → 5THE 10-30 12:06 → CCU 11-02 18:47 → 4THW 11-04 19:32
PROVIDERS: ADMIT Internal Medicine; ATTEND Internal Medicine
PROC: 0DJD8ZZ Inspection of Lower Intestinal Tract, Via Natural or Artificial Opening Endoscopic (ICD-10-PCS; 2016-10-31)
PROC: 0DB28ZX Excision of Middle Esophagus, Via Natural or Artificial Opening Endoscopic, Diagnostic (ICD-10-PCS; principal; 2016-10-31 12:00)
PROC: 0DB68ZX Excision of Stomach, Via Natural or Artificial Opening Endoscopic, Diagnostic (ICD-10-PCS; 2016-10-31 12:00)
CPT/HCPCS: 36415; 36430; 36600; 71010; 71250; 80048; 80053; 80162; 81001; 82553; 82803; 82947; 83036; 83540; 83605; 83735; 83880; 83970; 84100; 84145; 84466; 84484; 84550; 85025; 85046; 85610; 85730; 86738; 86850; 86900; 86901; 86923; 87071; 87278; 87299; 88305; 93005; 94640; 94660; 94762; 94799; 99223; 99232; 99233